=== PATIENT | female | born 1955 | race Caucasian/White ===

== ENCOUNTER 2017-03-04 09:30 | Observation (INO) | payer OTHER ==
[~2017-03-04] VITALS: Ht 152.4 cm; Wt 67.2 kg
[~2017-03-04 09:30] MED LIST: ABILIFY5 MG PO; ARIPIPRAZOLE2 MG PO; ASPIRIN325 MG PO; ATIVAN0.5 MG PO; ATORVASTATIN CA40 MG PO; BREO ELLIPTA I1 EACH IH; BUPROPION HCL150 M2 PO; BUPROPION XL300 MG PO; CEFUROXIME500 MG PO; Ceftin PO; ESCITALOPRAM OX20 MG PO; FARXIGA5 MG PO; GLUCOPHAGE500 MG PO; GUAIATUSSIN AC118 ML PO; Glucophage PO; ISOSORBIDE MONO30 MG PO; KlonoPIN PO; LANTUS100 UNIT/1 SQ; LEVAQUIN500 MG PO; LEVEMIR FL100 UNITS/ SC; LEVEMIR100 UNIT/2 SC; LEVOTHYROXINE112 MCG PO; LEVOTHYROXINE88 MCG PO; LEXAPRO20 MG PO; LEXAPRO5 MG PO; LISINOPRIL20 MG PO; LORAZEPAM0.5 MG PO; Levaquin PO; METFORMIN HCL1000 MG PO; METFORMIN HCL500 MG PO; METHYLPREDNISOLO4 M1 PO; METOPROLOL SUCC50 MG PO; METOPROLOL TART25 MG PO; METOPROLOL TART50 MG PO; OXYCODONE H5 MG/5 ML PO; PAXIL40 MG PO; PHENERGAN-CODE120 ML PO; PRAVACHOL80 MG PO; PRAVASTATIN SOD80 MG PO; PREDNISONE50 MG PO; PRINIVIL20 MG PO; PROTONIX40 MG PO; PROVENTIL HFA6.7 GM IH; Pravachol PO; Protonix PO; Proventil,Ventolin H IH; RAYOS2 MG PO; Roxicet,Percocet 5/3 PO; SYNTHROID125 MCG PO; SYNTHROID150 MCG PO; SYNTHROID200 MCG PO; TOPROL XL25 MG PO; TOPROL XL50 MG PO; Wellbutrin SR PO; ZANTAC150 MG PO; ZOFRAN4 MG PO; Zocor PO
[2017-03-04 10:23] LABS: HEMATOCRIT 37.3 % (36.0-46.0); MCH 30.9 PG (29.0-34.0); MCV 90.8 FL (83-99); MEAN PLAT.VOLUME 9.4 uM^3 (9.5-12.4); PLATELET COUNT 195 K/uL (156-360); RBC DIS.WIDTH-CV 12.5 % (11.8-14.6); RBC DIS.WIDTH-SD 40.9 % (39-53); RED BLOOD COUNT 4.11 M/uL (3.80-5.20); WHITE BLOOD COUNT 7.2 K/uL (4.1-10.2)
[2017-03-04 10:35] LABS: CHLORIDE 106 mEq/L (99-109); POTASSIUM 4.8 mEq/L (3.7-5.4); SODIUM 141 mEq/L (136-147)
[2017-03-04 10:36] LABS: GLUCOSE 114 mg/dL (70-99)
[2017-03-04 10:38] LABS: ANION GAP 11 MEQ/L (2-14)
[2017-03-04 10:40] LABS: GFR ESTIMATE (CALCULATED) > 59 mL/min/
[2017-03-04 10:41] LABS: UREA NITROGEN (BUN) 11 mg/dL (9-23)
[2017-03-04 10:44] LABS: TROP-I INTERPRETATION NEGATIVE; TROPONIN-I < 0.01 ng/mL (0.0-0.30)
[2017-03-04] MEDS ORDERED: METOPROLOL SUCC50 MG PO (12:22)
[2017-03-04 12:40] VITALS: BP 143/67
[2017-03-04 16:00] VITALS: BP 134/60
[2017-03-04 16:25] LABS: TROP-I INTERPRETATION NEGATIVE; TROPONIN-I < 0.01 ng/mL (0.0-0.30)
[2017-03-04 17:58] LABS: POINT-OF-CARE METER ID UU14162513
[2017-03-04 19:45] VITALS: BP 143/63
[2017-03-04 21:46] LABS: POINT-OF-CARE METER ID UU13113700
[2017-03-04 23:58] LABS: TROP-I INTERPRETATION NEGATIVE; TROPONIN-I < 0.01 ng/mL (0.0-0.30)
[2017-03-05 00:07] VITALS: BP 134/63
[2017-03-05 03:19] VITALS: BP 126/60
[2017-03-05 08:30] VITALS: BP 125/62
[2017-03-05 08:48] LABS: POINT-OF-CARE METER ID UU14162513
== END 2017-03-05 09:50 | disposition home or self-care (01) ==
LOC: EME 09:30 → 5WEST 11:14 → EDOF 11:14 → ENRESERV 11:21 → 5WEST 12:38
PROVIDERS: Internal Medicine
DX: R07.9 Chest pain, unspecified (principal); I25.10 Atherosclerotic heart disease of native coronary artery without angina pectoris; E11.9 Type 2 diabetes mellitus without complications; E03.9 Hypothyroidism, unspecified; Z95.5 Presence of coronary angioplasty implant and graft; E78.5 Hyperlipidemia, unspecified; F17.200 Nicotine dependence, unspecified, uncomplicated; Z90.49 Acquired absence of other specified parts of digestive tract; Z90.710 Acquired absence of both cervix and uterus; F32.9 Major depressive disorder, single episode, unspecified; R20.0 Anesthesia of skin; Z82.49 Family history of ischemic heart disease and other diseases of the circulatory system; Z80.0 Family history of malignant neoplasm of digestive organs; E66.9 Obesity, unspecified; Z68.28 Body mass index [BMI] 28.0-28.9, adult; Z79.4 Long term (current) use of insulin; J45.909 Unspecified asthma, uncomplicated; K21.9 Gastro-esophageal reflux disease without esophagitis; Z86.73 Personal history of transient ischemic attack (TIA), and cerebral infarction without residual deficits; Z79.82 Long term (current) use of aspirin
CPT/HCPCS: 71020; 80048; 82948; 84484; 85027; 93005; 94640; 94640 76; 99281; 99285; G0378; J1650